=== PATIENT | male | born 1945 | race Caucasian/White ===

== ENCOUNTER 2022-01-13 19:44 | Emergency (ER) | payer MEDICARE, OTHER, SELFPAY ==
--- NOTE | ~2022-01-13 | XR_ITS ---
EXAM: XR ribs RT 2V w CXR 2V DATE: 01/13/2022 21:31 HISTORY: fall UP STAIRS/pain, MID/POSTERIOR PAIN . COMPARISON: X-ray chest 05/05/2017. FINDINGS: Surgical clip projects over the right lower lung. Lungs are clear. Aortic ectasia and arch calcification. Calcified hilar/mediastinal nodes. Decreased mineralization. Exaggerated thoracic kyph osis with unchanged mild anterior wedge deformity of multiple lower thoracic vertebral bodies. Severe lumbar scoliosis. Mildly displaced right ninth posterolateral rib fracture. No lytic or blastic lesi on. Degenerative changes in the right shoulder. No erosion or periosteal change. Soft tissues within normal limits. IMPRESSION: Mildly displaced right posterior lateral ninth rib fracture. Reviewed, dictated and finalized at location K.
[2022-01-13 20:08] VITALS: BP 126/70; PULSE 63; RESP 18; TEMP 36.4; O2SAT 97
--- NOTE | 2022-01-13 21:28 | ED.GENADULT ---
HPI - General Adult General Chief complaint: Fall Stated complaint: fall, rib pain Time Seen by Provider: 01/13/22 21:13 History of Present Illness HPI narrative: Patient is a 76-year-old male who presents ER status post fall. Reports she is starting walk up steps of his basement when he tripped and fell onto his right side. Did not strike his head or lose consciousness. Does not take any blood thinners. He has pain in the right posterior lateral ribs. Worse with deep breaths. No exertional dyspnea. No runny nose or sore throat or cough. Related Data Home Medications Medication Instructions Recorded Confirmed telmisartan 40 mg tablet 50 mg PO DAILY 08/16/21 08/16/21 Allergies Allergy/AdvReac Type Severity Reaction Status Date / Time No Known Allergies Allergy Verified 01/13/22 21:11 Review of Systems Review of Systems: All systems reviewed & are unremarkable except as noted in HPI and below Constitutional: Constitutional: Denies chills and Denies fever(s) Cardiovascular: Cardiovascular: Denies chest pain and Denies radiating jaw, neck or arm pain Respiratory: Respiratory: Denies cough and Denies dyspnea Musculoskeletal: Musculoskeletal: Denies back pain and Denies arthralgias Comments: Right posterior lateral rib pain PMFSH Past Medical History Medical History (Updated 01/13/22 @ 22:53 by Farhad Rodriguez MD) Hypertension Surgical History Surgical History (Updated 01/13/22 @ 21:32 by Farhad Rodriguez MD) H/O inguinal hernia repair Social History Social History (Updated 08/16/21 @ 09:38 by China Garcia [facility]) Smoking status: Never smoker Alcohol intake: current Drinks per week: 4 Substance use: never Exam Narrative: GENERAL: Uncomfortable-appearing, well-nourished, and in no acute distress. HEAD: Normocephalic, atraumatic. CHEST: Clear to auscultation. No respiratory distress. Tender to palpation right posterior lateral ribs around T10. No visible evidence of trauma. HEART: Regular rate and rhythm. Normal peripheral pulses. ABDOMEN: Soft, nontender, nondistended, normal active bowel sounds. EXTREMITIES: Normal range of motion. 1+ edema. No tenderness of the right wrist/hand SKIN: Warm, dry, no rash. Skin tear posterior hand over the third metacarpal. NEURO: Alert and oriented x3. PSYCH: Normal mood and affect. Course Course Emergency Course: Patient more comfortable. Informed of results. We will perform incentive spirometry education and discharge home with pain control. Vital Signs Vital signs: Vital Signs Temperature 97.5 F L 01/13/22 20:08 Pulse Rate 63 01/13/22 20:08 Respiratory Rate 18 01/13/22 20:08 Blood Pressure 126/70 01/13/22 20:08 Pulse Oximetry 97 01/13/22 20:08 Oxygen Delivery Room Air 01/13/22 20:08 Temperature 98.1 F 01/13/22 22:37 Pulse Rate 56 L 01/13/22 22:37 Respiratory Rate 16 01/13/22 22:37 Blood Pressure 114/77 01/13/22 22:37 Pulse Oximetry 97 01/13/22 22:37 Oxygen Delivery Room Air 01/13/22 20:08 Medical Decision Making Vital Signs Vital Signs: Vital Signs Temperature 97.5 F L 01/13/22 20:08 Pulse Rate 63 01/13/22 20:08 Respiratory Rate 18 01/13/22 20:08 Blood Pressure 126/70 01/13/22 20:08 Pulse Oximetry 97 01/13/22 20:08 Oxygen Delivery Room Air 01/13/22 20:08 Temperature 98.1 F 01/13/22 22:37 Pulse Rate 56 L 01/13/22 22:37 Respiratory Rate 16 01/13/22 22:37 Blood Pressure 114/77 01/13/22 22:37 Pulse Oximetry 97 01/13/22 22:37 Oxygen Delivery Room Air 01/13/22 20:08 Imaging Data Radiologist's impression: ITS Impressions Ribs w/Chest X-Ray 01/13/22 21:49 IMPRESSION: Mildly displaced right posterior lateral ninth rib fracture. Discharge Plan Discharge Clinical Impression: Closed rib fracture Patient Disposition: Home, Self-Care Condition: Stable Instructions: How to Use an Incentive Spirometer (
[2022-01-13] MEDS: HYDROcodone/acetaminophen (*CRX) 5-325 MG TABLET 1 TAB PO (21:35)
[2022-01-13 22:37] VITALS: BP 114/77; PULSE 56; RESP 16; TEMP 36.7; O2SAT 97
== END 2022-01-13 23:14 | disposition home or self-care (01) ==
PROVIDERS: Emergency Provider Emergency Medicine
DX: S22.31XA Fracture of one rib, right side, initial encounter for closed fracture (principal); I10 Essential (primary) hypertension; W10.9XXA Fall (on) (from) unspecified stairs and steps, initial encounter
CPT/HCPCS: 71046; 71100; 99283; A9270